=== PATIENT | female | born 1950 | race Caucasian/White ===

== ENCOUNTER 2023-08-08 11:45 | Inpatient (IN) | payer MEDICARE ==
[~2023-08-08] VITALS: Ht 167.6 cm; Wt 48.5 kg
[2023-08-08] MEDS ORDERED: MAGNESIUM HYDROXIDE 30 ML LIQUID UDC PO PRN (13:45)
[2023-08-08] MEDS ORDERED: ACETAMINOPHEN 325 MG TABLET PO PRN (13:45)
[2023-08-08] MEDS ORDERED: MAG HYDROX/AL HYDROX/SIMETH 30 ML LIQUID UDC PO PRN (13:45)
[2023-08-08] MEDS: BLOOD SUGAR DIAGNOSTIC 1 EACH STRIP VI ONE (13:58)
[2023-08-08 15:47] VITALS: BP 132/98; TEMP 98.2; O2SAT 98
[2023-08-08 19:57] VITALS: BP 136/84; TEMP 98.1; O2SAT 97
[2023-08-08 20:14] VITALS: BP 136/84; TEMP 98.1; O2SAT 97
[2023-08-08] MEDS: LORAZEPAM 1 MG TABLET PO PRN (20:17)
[2023-08-09 08:08] VITALS: BP 141/75; TEMP 98; O2SAT 98
[2023-08-09 08:36] LABS: ALANINE AMINOTRANSFERASE 21 U/L (14-59); ALBUMIN 3.3 g/dL (3.4-5.0); ALKALINE PHOSPHATASE 101 U/L (50-136); ASPARTATE AMINOTRANSFERASE 14 U/L (15-37); BILIRUBIN,TOTAL 0.4 mg/dL (0.2-1.0); CALCIUM 9.6 mg/dL (8.5-10.1); CARBON DIOXIDE 25 mmol/L (21-32); CHLORIDE 108 mmol/L (98-107); GLUCOSE 97 mg/dL (74-106); POTASSIUM 4.2 mmol/L (3.5-5.1); SODIUM SERUM 144 mmol/L (136-145); TOTAL PROTEIN, SERUM 6.8 g/dL (6.4-8.2); UREA NITROGEN, BLOOD 32 mg/dL (7-18)
[2023-08-09] MEDS: DIVALPROEX SPRINKLE 125 MG CAP.SPRINK PO SCH (11:18)
[2023-08-09] MEDS: OLANZAPINE ZYDIS 5 MG TAB.RAPDIS PO SCH (11:18)
[2023-08-09] MEDS: ENSURE WITH FIBER 237 ML LIQUID (CHOCOLATE) PO SCH (14:15)
[2023-08-09 15:18] VITALS: BP 158/93; TEMP 97.6; O2SAT 99
[2023-08-09 20:00] VITALS: BP 156/92; TEMP 98.4; O2SAT 98
[2023-08-09] MEDS: ATORVASTATIN 10 MG TABLET PO SCH (20:37)
[2023-08-10 08:00] VITALS: BP 172/93; TEMP 97.8; O2SAT 100
[2023-08-10] MEDS: VENLAFAXINE XR 37.5 MG CAP.SR.24H PO SCH (09:00)
[2023-08-10] MEDS: CLONIDINE TTS 2 PATCH TD SCH (15:38)
[2023-08-10 15:58] VITALS: BP 174/94; TEMP 98.4; O2SAT 98
[2023-08-10 22:00] VITALS: BP 138/74; TEMP 98.4; O2SAT 97
[2023-08-11 08:19] VITALS: BP 168/93; TEMP 97.8; O2SAT 98
[2023-08-11 16:28] VITALS: BP 148/98; TEMP 97.9; O2SAT 98
[2023-08-11 20:00] VITALS: BP 156/100; TEMP 98.7; O2SAT 98
[2023-08-12 08:47] VITALS: BP 130/89; TEMP 98; O2SAT 99
[2023-08-12 15:21] LABS: BASOPHILS # (AUTO) 0.2 K/UL (0.0-0.2); BASOPHILS % (AUTO) 1.9 % (0.0-2.0); DIFFERENTIAL COMMENT 0; EOSINOPHILS # (AUTO) 1.5 K/uL (0.0-0.7); EOSINOPHILS % (AUTO) 14.4 % (0.0-7.0); HEMATOCRIT 45.7 % (31.2-41.9); LYMPHOCYTES # (AUTO) 0.5 K/uL (0.8-4.8); LYMPHOCYTES % (AUTO) 4.5 % (20.5-51.5); MEAN CORPUSCULAR HEMOGLOBIN 27.6 uug (24.7-32.8); MEAN CORPUSCULAR HGB CONC 33 g/dL (32.3-35.6); MEAN CORPUSCULAR VOLUME 84.3 fL (75.5-95.3); MONOCYTES # (AUTO) 0.5 K/uL (0.1-1.30); MONOCYTES % (AUTO) 4.5 % (0.0-11.0); NEUTROPHILS % (AUTO) 74.7 % (38.5-71.5); PLATELET COUNT (AUTO) 260 K/uL (179-408); RED BLOOD CELL COUNT(AUTO) 5.42 MIL/uL (3.63-4.92); RED CELL DISTRIBUTION WIDTH 14.1 % (12.3-17.7); WHITE BLOOD COUNT (AUTO) 10.7 K/uL (3.8-11.8)
[2023-08-12 15:33] LABS: ALANINE AMINOTRANSFERASE 23 U/L (14-59); ALBUMIN 3.7 g/dL (3.4-5.0); ALKALINE PHOSPHATASE 119 U/L (50-136); ASPARTATE AMINOTRANSFERASE 13 U/L (15-37); BILIRUBIN,TOTAL 0.3 mg/dL (0.2-1.0); CALCIUM 9.6 mg/dL (8.5-10.1); CARBON DIOXIDE 28 mmol/L (21-32); CHLORIDE 107 mmol/L (98-107); CREATININE 0.8 mg/dL (0.6-1.3); GLUCOSE 171 mg/dL (74-106); MAGNESIUM 2.3 mg/dL (1.8-2.4); POTASSIUM 3.8 mmol/L (3.5-5.1); SODIUM SERUM 144 mmol/L (136-145); TOTAL PROTEIN, SERUM 7.6 g/dL (6.4-8.2); UREA NITROGEN, BLOOD 33 mg/dL (7-18)
[2023-08-12 16:00] VITALS: BP 155/83; TEMP 98; O2SAT 99
[2023-08-12 20:01] VITALS: BP 117/76; TEMP 98.1; O2SAT 98
[2023-08-13 08:10] VITALS: BP 160/88; TEMP 97.5; O2SAT 98
[2023-08-13 16:16] VITALS: BP 162/65; TEMP 97.8; O2SAT 98
[2023-08-13] MEDS: hydrALAZINE HCL 25 MG TABLET PO PRN (16:21)
[2023-08-13 19:58] VITALS: BP 154/73; TEMP 98.2; O2SAT 97
[2023-08-13] MEDS: METOPROLOL TARTRATE 25 MG TABLET PO SCH (21:11)
[2023-08-13 21:30] VITALS: BP 134/76
[2023-08-14 08:52] VITALS: BP 140/74; TEMP 97.8; O2SAT 99
[2023-08-14 15:58] VITALS: BP 148/67; TEMP 97.8; O2SAT 99
[2023-08-14 20:32] VITALS: BP 144/57; TEMP 97.9; O2SAT 96
[2023-08-15 08:03] VITALS: BP 113/56; TEMP 98; O2SAT 100
[2023-08-15 15:22] VITALS: BP 105/62; TEMP 98; O2SAT 98
[2023-08-15 20:00] VITALS: BP 121/67; TEMP 98.6; O2SAT 99
[2023-08-16 08:30] VITALS: BP 130/61; TEMP 97.8; O2SAT 100
[2023-08-16 15:44] VITALS: BP 151/76; TEMP 98.8; O2SAT 97
[2023-08-17 08:04] VITALS: BP 142/73; TEMP 98; O2SAT 98
[2023-08-17] MEDS: OLANZAPINE ZYDIS 5 MG TAB.RAPDIS PO SCH (09:00)
[2023-08-17 15:44] VITALS: BP 136/78; TEMP 98; O2SAT 98
[2023-08-17 20:00] VITALS: BP 141/70; TEMP 98.8; O2SAT 99
[2023-08-18 08:11] VITALS: BP 149/89; TEMP 97.8; O2SAT 98
[2023-08-18 16:08] VITALS: BP 159/83; TEMP 97.9; O2SAT 97
[2023-08-18] MEDS: OLANZAPINE 10 MG VIAL IM STA (19:38)
[2023-08-18 20:36] VITALS: BP 145/89; TEMP 98; O2SAT 98
[2023-08-18] MEDS: ZOLPIDEM 5 MG TABLET PO PRN (23:48)
[2023-08-19 08:18] VITALS: BP 137/82; TEMP 98; O2SAT 97
[2023-08-19 16:22] VITALS: BP 134/81; TEMP 98; O2SAT 97
[2023-08-19 19:55] VITALS: BP 146/90; TEMP 98.1; O2SAT 96
[2023-08-20 07:53] VITALS: BP 166/90; TEMP 98.2; O2SAT 97
[2023-08-20] MEDS: risperiDONE 1 MG/ML UDC PO SCH (10:30)
[2023-08-20] MEDS: OLANZAPINE 10 MG VIAL IM PRN (11:06)
[2023-08-20] MEDS: risperiDONE 1 MG TABLET PO SCH (13:00)
[2023-08-20 16:19] VITALS: BP 94/63; TEMP 97.9; O2SAT 97
[2023-08-20 20:03] VITALS: BP 125/68; TEMP 98.1; O2SAT 97
[2023-08-21 08:30] VITALS: BP 131/76; TEMP 97.6; O2SAT 98
[2023-08-21 10:34] VITALS: BP 94/63; TEMP 97.9; O2SAT 97
[2023-08-21 20:16] VITALS: BP 170/79; TEMP 98.1; O2SAT 100
[2023-08-21] MEDS: MIRTAZAPINE 15 MG TABLET PO SCH (21:00)
[2023-08-22 08:00] VITALS: BP 153/92; TEMP 98.2; O2SAT 99
[2023-08-22 15:23] VITALS: BP 169/92; TEMP 98; O2SAT 99
[2023-08-22 20:00] VITALS: BP 146/80; TEMP 98.3; O2SAT 96
[2023-08-23 08:10] VITALS: BP 157/93; TEMP 98.6; O2SAT 95
[2023-08-23] MEDS: PALIPERIDONE PALMITATE 234 MG/1.5 ML SYRINGE IM ONE (12:42)
[2023-08-23 16:35] VITALS: BP 136/113; TEMP 98; O2SAT 96
[2023-08-23 20:00] VITALS: BP 140/89; TEMP 98; O2SAT 96
[2023-08-24 08:25] VITALS: BP 116/91; TEMP 98.4; O2SAT 96
[2023-08-24 20:00] VITALS: BP 136/86; TEMP 98.5
[2023-08-25 08:28] VITALS: BP 116/64; TEMP 99.3; O2SAT 97
[2023-08-25] MEDS ORDERED: IV LACTATED RINGERS SOLUTION 1,000 ML BAG IV ONE (12:00)
[2023-08-25] MEDS: IV LACTATED RINGERS SOLUTION 1,000 ML BAG IV ONE (13:47)
[2023-08-25 16:29] VITALS: BP 131/83; TEMP 98; O2SAT 97
[2023-08-25 19:58] VITALS: BP 126/80; TEMP 98; O2SAT 96
[2023-08-25 21:00] VITALS: BP 126/80
[2023-08-26 08:11] LABS: BASOPHILS % (AUTO) 0.3 % (0.0-2.0); EOSINOPHILS # (AUTO) 0.1 K/uL (0.0-0.7); EOSINOPHILS % (AUTO) 0.7 % (0.0-7.0); HEMATOCRIT 45.4 % (31.2-41.9); HEMOGLOBIN 14.9 g/dL (10.9-14.3); LYMPHOCYTES % (AUTO) 9.4 % (20.5-51.5); MEAN CORPUSCULAR HEMOGLOBIN 28.2 uug (24.7-32.8); MEAN CORPUSCULAR HGB CONC 33 g/dL (32.3-35.6); MEAN CORPUSCULAR VOLUME 85.7 fL (75.5-95.3); MONOCYTES % (AUTO) 9.9 % (0.0-11.0); NEUTROPHILS # (AUTO) 8.3 K/uL (1.8-8.9); NEUTROPHILS % (AUTO) 79.7 % (38.5-71.5); PLATELET COUNT (AUTO) 218 K/uL (179-408); RED CELL DISTRIBUTION WIDTH 14.4 % (12.3-17.7); WHITE BLOOD COUNT (AUTO) 10.3 K/uL (3.8-11.8)
[2023-08-26 08:18] LABS: DIFFERENTIAL COMMENT 1
[2023-08-26 08:27] LABS: ALANINE AMINOTRANSFERASE 22 U/L (14-59); ALBUMIN 2.9 g/dL (3.4-5.0); ALKALINE PHOSPHATASE 92 U/L (50-136); ASPARTATE AMINOTRANSFERASE 11 U/L (15-37); BILIRUBIN,TOTAL 0.6 mg/dL (0.2-1.0); CALCIUM 9.8 mg/dL (8.5-10.1); CARBON DIOXIDE 31 mmol/L (21-32); CHLORIDE 124 mmol/L (98-107); CREATININE 1.2 mg/dL (0.6-1.3); GLUCOSE 99 mg/dL (74-106); POTASSIUM 4.4 mmol/L (3.5-5.1); TOTAL PROTEIN, SERUM 6.8 g/dL (6.4-8.2); UREA NITROGEN, BLOOD 39 mg/dL (7-18)
[2023-08-26 08:48] LABS: SODIUM SERUM 162 mmol/L (136-145)
[2023-08-26] MEDS ORDERED: ACET650T10 PO (14:44)
[2023-08-26] MEDS ORDERED: LORA0.5T48 PO (14:56)
[2023-08-26] MEDS ORDERED: HYDR25TA86 PO (14:56)
[2023-08-26] MEDS ORDERED: ZOLP5TAB2 PO (14:56)
[2023-08-26] MEDS ORDERED: [UNRECOGNIZED DRUG - CODE] PO (14:56)
[2023-08-26] MEDS ORDERED: ATOR10TA PO (14:56)
[2023-08-26] MEDS ORDERED: DIVA125T2 PO (14:56)
[2023-08-26] MEDS ORDERED: CLON1PAT2 TD (14:56)
[2023-08-26] MEDS ORDERED: MIRT-121 PO (14:56)
[2023-08-26] MEDS ORDERED: METO25TA6 PO (14:56)
[2023-08-26] MEDS ORDERED: MAG-89 PO (14:56)
[2023-08-26] MEDS ORDERED: MAGN400O6 PO (14:56)
== END 2023-08-26 13:28 | disposition short-term general hospital (02) | DRG 885 ==
LOC: ER 11:45 → GPS 12:31
PROVIDERS: ADMIT Psychiatry & Neurology Psychiatry; ATTEND Internal Medicine
DX: F31.5 Bipolar disorder, current episode depressed, severe, with psychotic features (principal); U07.1 COVID-19; R45.851 Suicidal ideations; Z68.1 Body mass index [BMI] 19.9 or less, adult; E44.0 Moderate protein-calorie malnutrition; F03.92 Unspecified dementia, unspecified severity, with psychotic disturbance; R64 Cachexia; E78.5 Hyperlipidemia, unspecified; R62.7 Adult failure to thrive; Z91.148 Patient's other noncompliance with medication regimen for other reason; F94.0 Selective mutism; I10 Essential (primary) hypertension
CPT/HCPCS: 36415; 70450; 83735; 85025; J2358; J2426; J7120